=== PATIENT | female | born 1975 | race Two or more races ===

== ENCOUNTER 2021-08-31 14:26 | Emergency (ER) | payer OTHER ==
[~2021-08-31] VITALS: Ht 165.1 cm; Wt 61.2 kg
[2021-08-31] MEDS ORDERED: EC-NAPROSYN375 MG PO (17:31)
[2021-08-31] MEDS ORDERED: ORPHENADRINE C100 MG PO (17:31)
== END 2021-08-31 17:57 | disposition home or self-care (01) ==
LOC: ER 14:26
DX: M54.6 Pain in thoracic spine (principal)

== ENCOUNTER 2022-03-06 21:21 | Emergency (ER) | payer OTHER ==
[~2022-03-06] VITALS: Ht 165.1 cm; Wt 61.7 kg
[~2022-03-06 21:21] MED LIST: EC-NAPROSYN375 MG PO; ORPHENADRINE C100 MG PO
[2022-03-07] MEDS ORDERED: NABUMETONE750 MG PO (00:43)
[2022-03-07] MEDS ORDERED: ORPHENADRINE C100 MG PO (00:43)
== END 2022-03-07 01:25 ==
LOC: ER 21:21
DX: M62.838 Other muscle spasm (principal)

== ENCOUNTER 2022-04-20 10:09 | Emergency (ER) | payer OTHER ==
[~2022-04-20] VITALS: Ht 165.1 cm; Wt 61.7 kg
[~2022-04-20 10:09] MED LIST changes: +NABUMETONE750 MG PO
== END 2022-04-20 11:53 | disposition home or self-care (01) ==
LOC: ER 10:09
DX: M62.838 Other muscle spasm (principal); M62.830 Muscle spasm of back

== ENCOUNTER 2022-10-30 06:29 | Emergency (ER) | payer OTHER ==
[~2022-10-30] VITALS: Ht 165.1 cm; Wt 73.5 kg
[2022-10-30] MEDS ORDERED: BACTRIM DS TAB1 EACH PO (12:35)
== END 2022-10-30 12:49 | disposition home or self-care (01) ==
LOC: ER 06:29
PROVIDERS: General Practice
DX: N39.0 Urinary tract infection, site not specified (principal)